=== PATIENT | female | born 1965 | race Caucasian/White ===

== ENCOUNTER 2019-06-06 09:10 | Inpatient (IN) | payer OTHER ==
[2019-05-20 11:50] VITALS: BMI 19.9
--- NOTE | 2019-06-06 07:52 | HP ---
Admitting History and Physical - Admission Chief Complaint: left hip osteoarthritis x years History of Present Illness: 53 year old female presents in regard to their left hip. Longstanding history of left hip osteoarthritis. Patient complains of pain, limited ROM, difficulty ambulating and difficulty completing ADLs. Patient has failed conservative treatment measures including PO medications, injections, exercise programs and activity modification. At this point, patient wishes to proceed with surgical intervention, a left total hip arthroplasty. History Source: Patient - Past Medical History Gastrointestinal: Yes: Constipation ...LMP: 03/31/15 ...: No Musculoskeletal: Yes: Osteoarthritis - Past Surgical History Additional Past Surgical History: See written history & physical. - Smoking History Smoking history: Never smoked Have you smoked in the past 12 months: No - Alcohol/Substance Use Hx Alcohol Use: Yes (social) Home Medications - Allergies Allergies/Adverse Reactions: Allergies Allergy/AdvReac Type Severity Reaction Status Date / Time aspirin Allergy Severe Rash,FEVER Verified 05/20/19 11:40 Penicillins Allergy Severe Rash,FEVER Verified 05/20/19 11:40 Sulfa (Sulfonamide Allergy Severe Rash,FEVER Verified 05/20/19 11:40 Antibiotics) - Home Medications Home Medications: Ambulatory Orders Multivitamins [Tab-A-Vit -] 1 tab PO DAILY 04/07/15 Hydrocodone/Acetaminophen [[place] 5-325 Tablet] 1 - 2 each PO Q4H PRN #30 tablet 04/08/15 Loperamide HCl [Imodium -] 2 mg PO ASDIR PRN 05/20/19 Meloxicam 15 mg PO DAILY 05/20/19 Review of Systems - Review of Systems Musculoskeletal: reports: Decreased ROM (left hip), Joint Pain (left hip) Physical Examination Constitutional: Yes: Well Nourished Eyes: Yes: Conjunctiva Clear HENT: Yes: Atraumatic, Normocephalic Neck: Yes: Supple Cardiovascular: Yes: Regular Rate and Rhythm Respiratory: Yes: Regular Gastrointestinal: Yes: Soft ...Rectal Exam: Yes: Deferred Musculoskeletal: Yes: Joint Stiffness (left hip), Other (limited ROM left hip) Assessment/Plan 53 year old female presents in regard to their left hip. Longstanding history of left hip osteoarthritis. Patient complains of pain, limited ROM, difficulty ambulating and difficulty completing ADLs. Patient has failed conservative treatment measures including PO medications, injections, exercise programs and activity modification. At this point, patient wishes to proceed with surgical intervention, a left total hip arthroplasty. Pros, cons, risks benefits and alternatives of a left total hip arthroplasty were discussed with the patient at length. Patient confirms their understanding and consents to proceed with a left total hip arthroplasty.
[~2019-06-06 09:10] MED LIST: BUPIVICAINE 0.25%/MORPH PF/KETOROLAC - 51ML DISP.SYRINGE IA ONE; CEFAZOLIN 2 GM in DEXTROSE 5%-WATER - 50 ML IVPB ONE; PANTOPRAZOLE 40 MG TABLET (FP) PO ONE; TRANEXAMIC ACID 1000 MG/10 ML VIAL IVPUSH ONE; oxyCODONE HCL 10 MG SUSTAINED ACTING TABLET PO ONE
[2019-06-06] MEDS ORDERED: DEXAMETHASONE SOD PHOSPHATE/PF 10 MG/ML SDV ONE (09:27)
[2019-06-06] MEDS ORDERED: MIDAZOLAM HCL 2 MG/2 ML SINGLE DOSE VIAL ONE ×4 (09:28→13:54)
[2019-06-06] MEDS ORDERED: ceFAZolin SODIUM 1 GM VIAL ONE (10:23)
[2019-06-06] MEDS ORDERED: DEXMEDETOMIDINE HCL 200 MCG/2 ML IVPB ONE (11:04)
[2019-06-06] MEDS ORDERED: VANCOMYCIN 1,000 MG VIAL (RESTRICTED TO ID ONLY) ONE (11:04)
[2019-06-06] MEDS ORDERED: TRANEXAMIC ACID 1000 MG/10 ML VIAL ONE (11:38)
[2019-06-06] MEDS ORDERED: PROPOFOL 20 ML ONE (13:02)
[2019-06-06] MEDS ORDERED: BUPIVICAINE 0.25%/MORPH PF/KETOROLAC - 51ML DISP.SYRINGE IA ONE ×2 (13:45→14:15)
[2019-06-06] MEDS ORDERED: TRANEXAMIC ACID 1000 MG/10 ML VIAL IVPUSH ONE (14:10)
[2019-06-06] MEDS ORDERED: VANCOMYCIN 1,000 MG VIAL (RESTRICTED TO ID ONLY) IVPB ONE (14:10)
[2019-06-06] MEDS ORDERED: KETOROLAC TROMETHAMINE 30 MG/1 ML VIAL ONE (14:40)
[2019-06-06] MEDS ORDERED: traMADol HCL 50 MG TABLET ONE (14:40)
[2019-06-06] MEDS ORDERED: ACETAMINOPHEN INJECTION 100 ML IVPB ONE (14:41)
[2019-06-06] MEDS ORDERED: ONDANSETRON 4 MG/2 ML VIAL IVPUSH PRN ×2 (14:59→15:14)
[2019-06-06] MEDS ORDERED: oxyCODONE HCL 5 MG TABLET PO PRN (15:00)
[2019-06-06] MEDS ORDERED: LACTATED RINGERS SOLUTION 1,000 ML IV SCH ×2 (15:00→15:15)
--- NOTE | 2019-06-06 15:10 | OP ---
Operative Note - Note: Operative Date: 06/06/19 Pre-Operative Diagnosis: Left hip OA Operation: Left JENNIFER Post-Operative Diagnosis: Same as Pre-op Surgeon: Shawn Low Edge Worker: Romelia Carr Anesthesia: Spinal Estimated Blood Loss (mls): 200
[2019-06-06] MEDS ORDERED: ACETAMINOPHEN 1000 MG/100 ML VIAL (NON FORMULARY) IVPB ONE (15:11)
[2019-06-06] MEDS ORDERED: MAGNESIUM HYDROX 2400MG/30ML ORAL SUSPENSION 30 ML CUP PO PRN (15:14)
[2019-06-06] MEDS ORDERED: MAG HYDROX/AL HYDROX/SIMETH 30 ML UNIT-DOSE CUP PO PRN (15:14)
[2019-06-06] MEDS: KETOROLAC TROMETHAMINE 30 MG/1 ML VIAL IVPUSH SCH ×2 (15:17→21:01)
[2019-06-06] MEDS: traMADol HCL 50 MG TABLET PO SCH ×2 (15:17→21:02)
--- NOTE | 2019-06-06 16:17 | OP ---
DATE OF OPERATION: 06/06/2019 PREOPERATIVE DIAGNOSIS: Left hip osteoarthritis. POSTOPERATIVE DIAGNOSIS: Left hip osteoarthritis. PROCEDURE: Left total hip replacement. ATTENDING: Olivia Greene MD CORPORATE CLAIMS EXAMINER: VANESA Jordan ANESTHESIA: Spinal plus sedation. ESTIMATED BLOOD LOSS: 200 mL. COMPLICATIONS: None. DISPOSITION: The patient was taken to the PACU in stable condition. IMPLANTS USED: Preeti Accolade II size 4 femoral component, Preeti Trident II 56-mm acetabular component with 20 and 30-mm acetabular screws, MDM bipolar head ball and liner. INDICATIONS: This is a 53-year-old female who presented to the office complaining of severe left hip pain. She was seen and examined by Dr. Greene and diagnosed with severe left hip osteoarthritis. The patient was initially treated nonoperatively with injections, medications, and physical therapy but continued to have severe pain and ambulatory dysfunction. She was, therefore, indicated for a left total hip replacement. The risks, benefits, and alternatives to the procedure were explained to the patient in great detail, and she elected to proceed with the surgery. DESCRIPTION OF PROCEDURE: On the day of surgery, the patient was taken to the operating room and placed on the OR table. Spinal anesthesia was administered by the anesthesiologist. The patient was then positioned in the lateral decubitus position on the table, and all bony prominences were padded. An axillary roll was placed. The left lower extremity was then prepped and draped in the usual sterile fashion, and intravenous antibiotics were given for infection prophylaxis. A surgical time-out was then performed with the team, and the patients identity, procedure, side, site, availability of implants, and the administration of antibiotics were confirmed. An approximately 15-cm longitudinal incision was made through the skin centered on the greater trochanter of the hip. This dissection was carried down through the subcutaneous tissues to the deep fascia. This fascia was then incised. The Cobra was placed around the inferior femoral neck. Electrocautery was used to reflect the anterior 40% of the gluteus medius and minimus starting at the musculotendinous junction and leaving a cuff for closure. This was reflected to reveal the capsule of the hip joint. An anterior capsulectomy was performed, and the femoral head and neck were visualized and found to have severe grade 4 osteoarthritis. The hip was then dislocated with traction and external rotation and then oscillating saw was used to make a femoral neck cut at the level previously planned. The femoral neck and head were then removed. Attention was then turned to the acetabulum. Retractors were placed around the acetabulum, and the labrum was removed. The acromion was then reamed using successively larger reamers until excellent press-fit of a trial cup was achieved. From here, the trial was removed, and the appropriately sized real acetabular component was impacted in place and had solid fixation. Acetabular screws were placed for additional provisional fixation strength. An MDM liner was then placed within the cup. Attention was then turned back to the femur, which was externally rotated for improved visualization. A femoral neck elevator was used to present the femoral neck cut, a box osteotome was used to enter the femoral canal, and a canal finder was used to go down the femoral shaft. The Accolade broaches were then used sequentially until the optimal press-fit was achieved. From here, several different offset head and neck configurations were tested until excellent stability and length were obtained. All trial components were then removed. The femur was copiously irrigated, and the final components were placed. Leg length and stability were checked again and found to be excellent. A 3-minute dilute Betadine soak was performed. Following this, the wound was thoroughly irrigated with normal saline via pulsatile lavage. Wound closure was begun by repairing the abductor muscles with a No. 2 FiberWire stitch in a Krackow configuration and reattaching it to the greater trochanter. This repair was then reinforced with a No. 0 V-Loc 180 barbed suture. Next, No. 0 V-Loc 180 was used to close the fascia and IT band. The deep subcutaneous tissue was closed with No. 1 sutures, 2-0 and 3-0 V-Loc 90 running, barbed suture was used in the superior subcutaneous tissue and skin respectively. The skin was closed using a running subcuticular suture, and in addition, Dermabond skin adhesive. Once this was completed, a sterile dressing was applied. The patient was then awakened and taken to the PACU in stable condition. OLIVIA GREENE M.D. [id number]
[2019-06-06] MEDS: ACETAMINOPHEN 325 MG TABLET (FP) PO SCH ×2 (18:35→23:18)
[2019-06-06] MEDS: CEFAZOLIN 2 GM/D5W 2 GM/50 ML ML IVPB SCH (18:36)
[2019-06-06] MEDS: SENNOSIDES/DOCUSATE COMBO (SENNA PLUS) TABLET (UD) PO SCH (21:44)
[2019-06-06] MEDS: GABAPENTIN 300 MG CAPSULE (FP) PO SCH (21:44)
[2019-06-06] MEDS: oxyCODONE HCL 10 MG SUSTAINED ACTING TABLET PO SCH (21:45)
[2019-06-06] MEDS: ASCORBIC ACID 500 MG TABLET (FP) PO SCH (21:45)
[2019-06-06] MEDS ORDERED: PT OWN MED DRAWER 7, Y5N ONE (22:59)
[2019-06-06] MEDS: oxyCODONE HCL 5 MG TABLET PO PRN (23:18)
[2019-06-07] MEDS ORDERED: DEXAMETHASONE SOD PHOSPHATE 10 MG/1 ML VIAL IVPB ONE
[2019-06-07] MEDS: traMADol HCL 50 MG TABLET PO SCH ×4 (02:21→21:09)
[2019-06-07] MEDS: KETOROLAC TROMETHAMINE 30 MG/1 ML VIAL IVPUSH SCH ×4 (02:21→21:09)
[2019-06-07] MEDS: CEFAZOLIN 2 GM/D5W 2 GM/50 ML ML IVPB SCH (02:21)
[2019-06-07] MEDS: ACETAMINOPHEN 325 MG TABLET (FP) PO SCH ×3 (06:11→18:00)
[2019-06-07] MEDS: oxyCODONE HCL 5 MG TABLET PO PRN ×4 (06:11→17:25)
[2019-06-07] MEDS ORDERED: ASPIRIN 325 MG TABLET PO SCH ×2 (08:00→08:30)
[2019-06-07 08:25] LABS: HEMATOCRIT 33.9 % (32.4-45.2); HEMOGLOBIN 11.5 GM/dl (10.7-15.3); MCH 33.8 pg (25.7-33.7); MEAN CELL VOLUME 99.5 fl (80-96); MEAN PLT VOLUME 8.4 fl (7.5-11.1); PLATELET COUNT 194 K/MM3 (134-434); RDW 11.8 % (11.6-15.6); WHITE BLOOD COUNT 10.2 K/mm3 (4.0-10.8)
[2019-06-07 08:32] LABS: CALCIUM 8.4 mg/dl (8.5-10); CREATININE 0.8 mg/dl (0.55-1.3); POTASSIUM 4.4 mmol/L (3.5-5.1)
[2019-06-07] MEDS: GABAPENTIN 300 MG CAPSULE (FP) PO SCH ×2 (09:23→21:10)
[2019-06-07] MEDS: PANTOPRAZOLE 40 MG TABLET (FP) PO SCH (09:23)
[2019-06-07] MEDS: SENNOSIDES/DOCUSATE COMBO (SENNA PLUS) TABLET (UD) PO SCH ×2 (09:23→21:11)
[2019-06-07] MEDS: oxyCODONE HCL 10 MG SUSTAINED ACTING TABLET PO SCH ×2 (09:25→21:10)
[2019-06-07] MEDS: MULTIVITAMINS (DAILY MVI) TABLET (FP) PO SCH (09:31)
[2019-06-07] MEDS: metoPROLOL SUCCINATE 25 MG TAB.SR.24H (FP) PO SCH (09:32)
[2019-06-07] MEDS: ASCORBIC ACID 500 MG TABLET (FP) PO SCH ×2 (09:32→21:11)
[2019-06-07] MEDS ORDERED: MULTIVITAMINS (DAILY MVI) TABLET (FP) PO SCH (10:00)
[2019-06-07] MEDS ORDERED: DEXAMETHASONE SOD PHOSPHATE 10 MG/1 ML VIAL IVPUSH ONE (11:15)
[2019-06-07] MEDS ORDERED: APIXABAN 2.5 MG TABLET PO ONE (13:00)
--- NOTE | 2019-06-07 14:40 | PN ---
Progress Note (short form) - Note Progress Note: S: Pt. resting in her chair. In nad. Ambulating O: VAS/ 4-5/10 A/P: POD#1 s/p Left THR 1. Encouraged pain med use as needed 2. No anesthetic complications
[2019-06-07] MEDS: APIXABAN 2.5 MG TABLET PO SCH (21:10)
[2019-06-07 22:47] VITALS: TEMP 98.4
[2019-06-08] MEDS: KETOROLAC TROMETHAMINE 30 MG/1 ML VIAL IVPUSH SCH ×2 (05:40→09:00)
[2019-06-08] MEDS: traMADol HCL 50 MG TABLET PO SCH ×2 (05:40→09:15)
[2019-06-08] MEDS: ACETAMINOPHEN 325 MG TABLET (FP) PO SCH ×2 (05:40→06:00)
[2019-06-08 07:19] VITALS: BP 126/77; PULSE 88
[2019-06-08 10:12] LABS: HEMATOCRIT 29.4 % (32.4-45.2); HEMOGLOBIN 9.9 GM/dL (10.7-15.3); MCH 33.4 pg (25.7-33.7); MCHC 33.8 g/dl (32.0-36.0); MEAN CELL VOLUME 98.8 fl (80-96); MEAN PLT VOLUME 8.3 fl (7.5-11.1); PLATELET COUNT 161 K/MM3 (134-434); RBC 2.97 M/mm3 (3.60-5.2); RDW 12.6 % (11.6-15.6); WHITE BLOOD COUNT 7.9 K/mm3 (4.0-10.0)
[2019-06-08] MEDS: PANTOPRAZOLE 40 MG TABLET (FP) PO SCH (10:31)
[2019-06-08] MEDS: SENNOSIDES/DOCUSATE COMBO (SENNA PLUS) TABLET (UD) PO SCH (10:31)
[2019-06-08] MEDS: metoPROLOL SUCCINATE 25 MG TAB.SR.24H (FP) PO SCH (10:31)
[2019-06-08] MEDS: MULTIVITAMINS (DAILY MVI) TABLET (FP) PO SCH (10:31)
[2019-06-08] MEDS: GABAPENTIN 300 MG CAPSULE (FP) PO SCH (10:31)
[2019-06-08] MEDS: APIXABAN 2.5 MG TABLET PO SCH (10:31)
[2019-06-08] MEDS: oxyCODONE HCL 10 MG SUSTAINED ACTING TABLET PO SCH (10:31)
[2019-06-08] MEDS: ASCORBIC ACID 500 MG TABLET (FP) PO SCH (10:32)
--- NOTE | 2019-06-08 12:16 | DS ---
Physical Examination Vital Signs: Vital Signs Temperature 98.4 F 06/08/19 06:00 Pulse Rate 88 06/08/19 06:00 Respiratory Rate 16 06/08/19 08:00 Blood Pressure 126/77 06/08/19 06:00 O2 Sat by Pulse Oximetry (%) 98 06/08/19 08:00 Labs: CBC, BMP 06/08/19 07:43 06/07/19 07:05 Discharge Summary Problems reviewed: Yes Reason For Visit: LEFT HIP OSTEOARTHRITIS Current Active Problems Osteoarthritis of left hip (Acute) Procedures: Principal: left JENNIFER Hospital Course: Admitted for elective surgery. Procedure performed without complications. Pt received postoperative antibiotic prophylaxis and DVT ppx. Ambulated with physical therapy. Stable for discharge home with outpatient followup. Condition: Stable - Instructions Diet, Activity, Other Instructions: Dr Low - Hip Replacement Instructions Keep the Aquacel dressing on until removed by Dr. Low in the office - it is antibacterial and waterproof and you can shower with it on. Call the office for a follow-up appointment with Dr. Low in 2 weeks. Take ELIQUIS 2.5mg twice daily to prevent blood clots in your legs. Take one Pantoprazole 40mg daily for 6 weeks to protect against heartburn and ulcers. Take Cephalexin (antibiotic) 3x/day for 10 days to help prevent skin infection. Resume taking meloxicam 15mg daily to reduce swelling and inflammation. Take a multivitamin, stool softener and extra Vitamin C supplement daily. For pain: *Mild pain (1-3/10): Take 1 Tramadol tablet every 4 hours as needed. Moderate pain (4-6/10): Take 1 Tramadol tablet and 1 Percocet tablet every 4 hours as needed. Severe pain (7-10/10): Take 1 Tramadol tablet and 2 Percocet tablets every 4 hours as needed. Activity: You can put as much weight on the operative leg as you want. For the first 6 weeks, all you need to do is walk around the house, go up/down stairs, and sit down/get up. After 6 weeks when everything is healed (and bone has grown into the implant) you will be sent for more intensive outpatient physical therapy. Always use a walker or cane for balance and to prevent falls. Expect to see swelling / bruising from the operative site all the way down to your toes. Wear the Compression stocking on the operative side during the day to minimize how much swelling there is in your foot/ankle. Don't wear the stocking at night. You don't have to wear the stocking on the other side. Disposition: VNS/HOME HEALTH CARE - Home Medications Comprehensive Discharge Medication List: Ambulatory Orders Multivitamins [Multivit ([facility] Formulary)] 1 tab PO DAILY 04/07/15 Loperamide HCl [Imodium -] 2 mg PO ASDIR PRN 05/20/19 Metoprolol Succinate 25 mg PO DAILY 06/06/19 Apixaban [Eliquis -] 2.5 mg PO BID #70 tablet 06/08/19 Ascorbic Acid [Vitamin C -] 500 mg PO BID tablet 06/08/19 Cephalexin Monohydrate [Keflex -] 500 mg PO TID #30 capsule 06/08/19 Meloxicam 15 mg PO DAILY #30 tablet 06/08/19 Oxycodone HCl/Acetaminophen [Percocet 5-325 mg Tablet] 1 - 2 tab PO Q4H PRN #60 tablet MDD 10 06/08/19 Pantoprazole Sodium [Protonix -] 40 mg PO DAILY #40 tablet.ec 06/08/19 Sennosides/Docusate Sodium [Pericolace -] 2 tablet PO BID tablet 06/08/19 traMADol HCL [Ultram -] 50 mg PO Q4H PRN #42 tablet MDD 6 06/08/19
== END 2019-06-08 13:00 | disposition home health service (06) | DRG 470 ==
LOC: FM/S 09:10
PROVIDERS: ADMIT Student in an Organized Health Care Education/Training Program; ATTEND Student in an Organized Health Care Education/Training Program
PROC: 0SRB0JA Replacement of Left Hip Joint with Synthetic Substitute, Uncemented, Open Approach (ICD-10-PCS; principal; 2019-06-06 12:21)
DX: M16.12 Unilateral primary osteoarthritis, left hip (principal)
CPT/HCPCS: 36415; 73502-TC-LT-FY; 80048; 84703; 85027; 94760; 97116-GP; 97163-GP; J0131; J1100